=== PATIENT | female | born 1980 | race Caucasian/White ===

== ENCOUNTER → 2020-02-25 15:39 | Outpatient (BNVA) | payer OTHER, SELFPAY | PROVIDERS: PCP Internal Medicine; Visit Provider Urology | DX: Z76.89 Persons encountering health services in other specified circumstances (principal) ==

== ENCOUNTER 2020-08-12 09:39 | Outpatient (REF) | payer OTHER, SELFPAY ==
[2020-08-12 10:14] LABS: COVID-19 Test Negative (Negative)
== END 2020-08-12 09:40 | disposition home or self-care (01) ==
LOC: HO.LAB 09:39
PROVIDERS: Visit Provider Internal Medicine
DX: Z20.822 Contact with and (suspected) exposure to COVID-19 (principal)
CPT/HCPCS: 36415; 87635; C9803

== ENCOUNTER 2020-08-30 09:36 | Outpatient (REF) | payer OTHER, SELFPAY ==
[2020-08-30 11:04] LABS: COVID-19 Test Negative (Negative); IDNOW Serial# 55D5AD1C
== END 2020-08-30 09:37 | disposition home or self-care (01) ==
LOC: HO.LAB 09:36
PROVIDERS: Visit Provider Internal Medicine
DX: Z20.822 Contact with and (suspected) exposure to COVID-19 (principal)
CPT/HCPCS: 36415; 87635; C9803

== ENCOUNTER 2021-01-26 15:49 | Outpatient (REF) | payer OTHER, SELFPAY | END 2021-01-26 15:50 | disposition home or self-care (01) | LOC: HO.LAB 15:49 | PROVIDERS: PCP Internal Medicine; Visit Provider Internal Medicine | DX: Z20.822 Contact with and (suspected) exposure to COVID-19 (principal) | CPT/HCPCS: U0003; U0005 ==

== ENCOUNTER 2021-02-02 16:03 | Emergency (ER) | payer OTHER, SELFPAY ==
[2021-02-02 17:39] VITALS: BP 125/68; PULSE 77; RESP 20; TEMP 37; O2SAT 98; BMI 27.4
[2021-02-02 20:43] VITALS: BP 130/76; PULSE 63; RESP 16; TEMP 36.5; O2SAT 100
--- NOTE | 2021-02-02 21:07 | ED.GENADULT ---
HPI - General Adult General Chief complaint: Skin/Abscess/Foreign Body Stated complaint: Bump on head Time Seen by Provider: 02/02/21 20:52 Source: patient Mode of arrival: ambulatory Limitations: no limitations History of Present Illness HPI narrative: Patient presents to the ED for lump forehead. Patient woke up with lump today ago. Patient denies waking up from the floor or hitting her head. Patient denies any pain in the area. Patient states no headache, nausea, vomiting, fever, chills, or dizziness. Patient denies any redness, pus discharge, or any recent head trauma. Related Data Home Medications Medication Instructions Recorded Confirmed cyclobenzaprine 5 mg tablet 5 mg PO TID PRN 02/25/20 drospirenone 3 mg-ethinyl 1 tab PO DAILY 02/25/20 estradiol 0.03 mg tablet (Ocella) Previous Rx's Medication Instructions Recorded pyridoxine (vitamin B6) 100 mg 100 mg PO DAILY 90 Days #90 tab 02/25/20 tablet Allergies Allergy/AdvReac Type Severity Reaction Status Date / Time No Known Allergies Allergy Verified 02/25/20 15:41 Review of Systems Review of Systems: Yes all other systems are reviewed and are negative Constitutional: Constitutional: Reports as per HPI and Reports no additional constitutional complaints Eyes: Eyes: Reports as per HPI and Reports no additional eye complaints ENT: Reports system reviewed and no additional complaints, except as documented and Reports as per HPI Cardiovascular: Cardiovascular: Reports as per HPI and Reports no additional cardiovascular complaints Respiratory: Respiratory: Reports as per HPI and Reports no additional respiratory complaints Gastrointestinal: Gastrointestinal: Reports as per HPI and Reports no additional gastrointestinal complaints Genitourinary: Genitourinary: Reports no additional female genitourinary complaints and Reports as per HPI Musculoskeletal: Musculoskeletal: Reports no additional musculoskeletal complaints and Reports as per HPI Integumentary/Breasts: Comments: Lump on forehead Neurologic: Reports system reviewed and no additional complaints, except as documented and Reports as per HPI Psychiatric: Psychiatric: Reports no additional psychiatric complaints and Reports as per HPI [facility] Social History Social History Advance Directives: No Patient : No Physical Exam Vital Signs: Vital Signs: Last Vital Signs Temp 97.7 F 02/02/21 20:43 Pulse 63 02/02/21 20:43 Resp 16 02/02/21 20:43 BP 130/76 02/02/21 20:43 Pulse Ox 100 02/02/21 20:43 Body Mass Index 27.4 Const: General: cooperative, healthy appearing, comfortable, no acute distress, well developed, alert, awake and Physically active Orientation/consciousness: patient oriented x3 HENMT: Head: Yes normal to inspection, Yes No palpable skull fracture present, Yes normocephalic and Yes atraumatic Head images: 1. Mass negative for any erythema, fluctuance, pus discharge, foul odor, open wounds, ecchymosis, crepitus, or deformity. Negative for sinus pressure. Eyes: General: appearance normal, both eyes and all related structures Neck: Neck: Yes normal visual inspection, Yes full ROM, Yes no lymphadenopathy, Yes no meningeal signs, Yes trachea midline, Yes supple and No tender Chest: Chest palpation & inspection: normal inspection of the chest and normal palpation of entire chest wall Resp: Effort & Inspection: normal respiratory effort and able to speak in complete sentences Auscultation: clear to auscultation bilaterally Cardio: Jugular venous distension: no JVD Heart sounds: S1 normal heart sound present and S2 normal heart sound present GI: Inspection: Yes normal to inspection and No abdominal wall ecchymosis Palpation (GI): Soft to palpation, not firm, nontender, no guarding and not rigid : General: No CVA tenderness and Yes no CVA tenderness Back/Spine/Pelvis: Back: no CVA tenderness, No CVA tenderness and No back tenderness Skin: General skin exam: no rashes or lesions noted and elasticity normal Neuro: General: patient oriented x3, gait normal, no meningeal signs and CN's II-XI intact bilaterally Cranial nerves: Yes CN's II-XII intact bilaterally Extrem: General: Yes normal to inspection and Yes full ROM Psych: Appearance: grossly normal, well kempt and not disheveled Course Course Course Narrative: No imaging indicated. Patient did not have any head trauma. History of physical exam does not indicate a skull fracture, brain bleed, abscess, cellulitis. Reevaluation(s) Reevaluation #1: Diagnosis is early lipoma. Patient informed to follow-up with surgery. Time: 21:15 Medical Decision Making [facility] Narrative Medical decision making narrative: Lipoma Discharge Plan Discharge Clinical Impression: Lipoma Patient Disposition: Home, Self-Care Instructions: Lipoma (ED), Soft Tissue Mass (ED) Additional Instructions: Return to the ED immediately for pain, increase in size, redness, pus discharge, foul odor, fever, chills, severe headache, photophobia, neck pain, extremity tingling, or any other concerning symptoms. Prescriptions: No Action cyclobenzaprine 5 mg tablet 5 mg PO TID PRNRF: 0 drospirenone-ethinyl estradiol [Ocella] 3-0.03 mg tablet 1 tab PO DAILY RF: 0 pyridoxine (vitamin B6) 100 mg tablet 100 mg PO DAILY 90 Days Qty: 90 RF: 3 Referrals: Morgan Finney MD [Physician] - 2 days (Early lipoma) Interventions: ED Discharge Assessment Last Done: 02/02/21 21:24 Discharge Date/Time: 02/02/21 21:28 Print Language: Belarusian
== END 2021-02-02 21:28 | disposition home or self-care (01) ==
PROVIDERS: Emergency Provider Internal Medicine; PCP Internal Medicine
DX: D17.0 Benign lipomatous neoplasm of skin and subcutaneous tissue of head, face and neck (principal)
CPT/HCPCS: 99282; 99284

== ENCOUNTER 2021-02-22 13:34 | Outpatient (REF) | payer OTHER, SELFPAY ==
--- NOTE | ~2021-02-22 | XR_ITS ---
EXAMINATION: XR ABDOMEN KUB CLINICAL INDICATION: Right flank pain; question renal calculus. COMPARISON: CT abdomen and pelvis dated 05/12/2019; renal ultrasound dated 10/04/2009. TECHNIQUE: AP view of the abdomen. FINDINGS: The bowel gas pattern is normal, with no evidence of ileus or obstruction. At the upper pole and interpolar aspect of the right kidney, three 2 mm calculi are seen. At the lower pole of the right kidney, a 3 mm calculus is seen. No further urinary calculus is noted. The bones are unremarkable. XR/XR KUB IMPRESSION: Tiny right renal calculi are seen, as above. No further urinary calculus is presently appreciated on radiographs limited by overlapping bowel contents.
== END 2021-02-22 13:35 | disposition home or self-care (01) ==
LOC: HO.XRAY 13:34
PROVIDERS: PCP Internal Medicine; Visit Provider Urology
DX: N20.0 Calculus of kidney (principal)
CPT/HCPCS: 74018

== ENCOUNTER → 2021-03-01 15:30 | Outpatient (BNVA) | payer OTHER, SELFPAY | PROVIDERS: PCP Internal Medicine ==

== ENCOUNTER 2021-09-23 15:25 | Outpatient (REF) | payer OTHER, SELFPAY ==
--- NOTE | ~2021-09-23 | US_ITS ---
EXAMINATION: US RETROPERITONEAL LIMITED (RENAL ONLY) CLINICAL INFORMATION: Calculus of kidney. COMPARISON: X-ray KUB 02/22/2021. CT abdomen and pelvis 05/12/2019. TECHNIQUE: Real-time imaging of the kidneys. FINDINGS: RIGHT KIDNEY: 10.1 x 3.8 x 5.1 cm (SAG x AP x TRV). The kidney is normal in size, contour, and echogenicity. Renal cortical thickness is normal. No focal parenchymal lesions or hydronephrosis. At the interpolar aspect, 4 mm and 3 mm nonobstructing calculi are seen. LEFT KIDNEY: 10.8 x 4.4 x 4.8 cm (SAG x AP x TRV). The kidney is normal in size, contour, and echogenicity. Renal cortical thickness is normal. No focal parenchymal lesions or hydronephrosis. At the upper pole, a 2 mm nonobstructing calculus is seen. At the interpolar aspect, a 3 mm nonobstructing calculus is seen. At the lower pole, a 3 mm nonobstructing calculus is seen. US/US renal BI IMPRESSION: There are multiple nonobstructing bilateral renal calculi, as detailed. No hydronephrosis is seen bilaterally.
== END 2021-09-23 15:26 | disposition home or self-care (01) ==
LOC: HO.HMGCX 15:25
DX: N20.0 Calculus of kidney (principal)
CPT/HCPCS: 76775

== ENCOUNTER 2022-02-20 13:52 | Outpatient (REF) | payer OTHER, SELFPAY ==
--- NOTE | ~2022-02-20 | US_ITS ---
EXAMINATION: US RETROPERITONEAL LIMITED (RENAL ONLY) CLINICAL INFORMATION: Calculus of kidney. COMPARISON: Ultrasound retroperitoneal limited (renal only) 09/23/2021. X-ray abdomen KUB 02/22/2021. CT abdomen and pelvis without contrast 05/12/2019. TECHNIQUE: Real-time imaging of the kidneys. FINDINGS: RIGHT KIDNEY: 11.4 x 3.6 x 4.0 cm (SAG x AP x TRV). The kidney is normal in size, contour, and echogenicity. Renal cortical thickness is normal. 2 mm stone in the midpole. No focal parenchymal lesions or hydronephrosis. LEFT KIDNEY: 10.6 x 6.0 x 5.8 cm (SAG x AP x TRV). The kidney is normal in size, contour, and echogenicity. Renal cortical thickness is normal. 4 mm stone in the midpole. No focal parenchymal lesions or hydronephrosis. US/US renal BI IMPRESSION: Small bilateral renal stones. Stones appear decreased from August 2021 exam.
== END 2022-02-20 13:53 | disposition home or self-care (01) ==
LOC: HO.HMGCX 13:52
PROVIDERS: Visit Provider Urology
DX: N20.0 Calculus of kidney (principal)
CPT/HCPCS: 76775

== ENCOUNTER → 2022-04-21 11:22 | Outpatient (BNVA) | payer OTHER, SELFPAY | PROVIDERS: PCP Internal Medicine; Visit Provider Urology | DX: Z13.89 Encounter for screening for other disorder (principal) ==

== ENCOUNTER 2022-10-03 14:22 | Outpatient (REF) | payer OTHER, SELFPAY ==
--- NOTE | ~2022-10-03 | US_ITS ---
EXAMINATION: US RETROPERITONEAL LIMITED (RENAL ONLY) CLINICAL INFORMATION: Calculus of kidney. COMPARISON: Bilateral renal ultrasounds dated 02/20/2022. 09/23/2021. KUB dated 02/22/2021. TECHNIQUE: Real-time imaging of the kidneys. FINDINGS: RIGHT KIDNEY: 11.1 x 3.4 x 6.1 cm (SAG x AP x TRV). The kidney is normal in size, contour, and echogenicity. Renal cortical thickness is normal. No focal parenchymal lesions or hydronephrosis. At the interpolar aspect, a 3 mm nonobstructing calculus is seen. At the lower pole, a 2 mm nonobstructing calculus is LEFT KIDNEY: 11.1 x 4.7 x 5.0 cm (SAG x AP x TRV). The kidney is normal in size, contour, and echogenicity. Renal cortical thickness is normal. No focal parenchymal lesions or hydronephrosis. At the interpolar aspect, a 3 mm nonobstructing calculus is seen. US/US renal BI IMPRESSION: There are nonobstructing bilateral renal calculi. No hydronephrosis is seen bilaterally.
== END 2022-10-03 14:23 | disposition home or self-care (01) ==
LOC: HO.HMGCX 14:22
PROVIDERS: Visit Provider Urology
DX: N20.0 Calculus of kidney (principal)
CPT/HCPCS: 76775

== ENCOUNTER 2022-10-20 15:28 | Outpatient (AMB) | payer OTHER, SELFPAY ==
--- NOTE | 2022-10-20 15:29 | A.OFFVIS_ITS ---
Intake Intake Visit Reasons: 6m follow up/US(?) Intake Note: * Patient presents today for a 6mo follow-up with Ultrasound results * Meds- Pyridoxine (vitamin B6) * Allergies to Antibiotic- None * Blood Thinner- None Anesthetic Assistant Required: No Accompanied by: Self / Same As Patient Allergies No Known Allergies Allergy (Verified 10/20/22 15:30) HPI HPI Comments History of Present Illness Details Sola is a 42-year-old female who presents to the office for kidney stone follow-up. 10/20/22-- She is here follow-up post Renal US. The patient has had prior history of ureteroscopy in the past and has also stated that she has passed stone. Renal US results reviewed?10/03/22--findings of 2 small stones in the right kidney that are non-obstructing, 3 mm and a 2 mm as well as 3 mm in the left kidney. The patient has had a tele-visit last on 04/21/22. She has been instructed to take vitamin B6 100mg and adequate water intake. Kidney stones whose composition w 07/17 -- calcium oxalate - monohydrate, calcium oxalate - dihydrate. 06/19- 24 Hour urine evaluation Low Urine volume < 2.0 liters, High Sodium (> 100mEq), normal calcium, high citrate. The patient states having mild pain that is managable. She denies passing any stone in the interim. States taking vitamin B6 100 mg regularly. States consuming more fluids than before. Evaluation today: Blood:10 Carlos/uL, leukocytes: negative. Plan: Discussed to consume 60-64 ounces of water daily. Discussed to follow renal calculi prevention diet. Renal US prior was ordered. Follow-up after 1 year. Review of Systems Const All systems reviewed & are unremarkable except as noted in HPI and below Reports no additional complaints Eyes Reports no additional complaints ENT Reports no additional complaints Card Denies dyspnea Resp Denies cough and Denies dyspnea GI Reports no additional complaints Reports no additional complaints Musc Reports no additional complaints Skin/Breast Denies rash and Denies unusual bruising Neuro Reports no additional complaints Psych Reports no additional complaints Endo Reports no additional complaints Jamshid/Lymph Reports no additional complaints Aller/Immun Reports no additional complaints Results AMB Urinalysis, Automated UA Leukoctes 0 Talisha/uL Last Edit by Dagoberto Feng [facility] on 10/20/22 15:48 UA Nitrite Negative Last Edit by Dagoberto Feng [facility] on 10/20/22 15:48 UA Urobilinogen 0.2 mg/dL Last Edit by Dagoberto Feng [facility] on 10/20/22 15:4 8 UA Protein 0 mg/dL Last Edit by Dagoberto Feng [facility] on 10/20/22 15:48 UA pH 7.5 Last Edit by Dagoberto Feng [facility] on 10/20/22 15:48 UA Blood 10 Carlos/uL Last Edit by Dagoberto Feng [facility] on 10/20/22 15:48 UA Specific Mehama 1.010 Last Edit by Dagoberto Feng [facility] on 10/20/22 15: 48 UA Ketone Negative Last Edit by Dagoberto Feng [facility] on 10/20/22 15:48 UA Bilirubin 0 mg/dL Last Edit by Dagoberto Feng [facility] on 10/20/22 15:48 UA Glucose 0 mg/dL Last Edit by Dagoberto Feng [facility] on 10/20/22 15:48 Results Reviewed Results Reviewed: Laboratory Last Values Urine pH (Auto) 7.5 10/20/22 15:42 Specific Mehama (Auto) 1.010 10/20/22 15:42 Urine Protein (Auto) 0 mg/dL 10/20/22 15:42 Glucose (UA)(Auto) 0 mg/dL 10/20/22 15:42 Urine Ketones (Auto) Negative 10/20/22 15:42 Urine Blood (Auto) 10 Carlos/uL 10/20/22 15:42 Urine Nitrite (Auto) Negative 10/20/22 15:42 Urine Bilirubin (Auto) 0 mg/dL 10/20/22 15:42 Urine Urobilinogen (Auto) 0.2 mg/dL 10/20/22 15:42 Leukocyte Esterase (Auto) 0 Talisha/uL 10/20/22 15:42 Date of Service: 10/03/22 EXAMINATION: US RETROPERITONEAL LIMITED (RENAL ONLY) CLINICAL INFORMATION: Calculus of kidney. COMPARISON: Bilateral renal ultrasounds dated 02/20/2022. 09/23/2021. KUB dated 02/22/2021. TECHNIQUE: Real-time imaging of the kidneys.? FINDINGS: RIGHT KIDNEY: 11.1 x 3.4 x 6.1 cm (SAG x AP x TRV). The kidney is normal in size, contour, and echogenicity. Renal cortical thickness is normal. No focal parenchymal lesions or hydronephrosis. At the interpolar aspect, a 3 mm nonobstructing calculus is seen. At the lower pole, a 2 mm nonobstructing calculus is LEFT KIDNEY: 11.1 x 4.7 x 5.0 cm (SAG x AP x TRV). The kidney is normal in size, contour, and echogenicity. Renal cortical thickness is normal. No focal parenchymal lesions or hydronephrosis. At the interpolar aspect, a 3 mm nonobstructing calculus is seen. IMPRESSION: There are nonobstructing bilateral renal calculi. No hydronephrosis is seen bilaterally. Assessment & Plan Assessment & Plan (1) Bilateral nephrolithiasis: Code(s): N20.0 - Calculus of kidney Plan Discussed to consume 60-64 ounces of water daily. Discussed to follow renal calculi prevention diet. Renal US prior was ordered. Follow-up after 1 year. Orders: Orders US renal BI 10 Months N20.0 - Calculus of kidney AMB Urinalysis Automated 10/20/22 Z13.9 - Encounter for screening, unspecified Medications: Refilled pyridoxine (vitamin B6) 100 mg PO DAILY 90 tabs 3RF Patient Instructions: The patient had an opportunity to ask questions regarding treatment plan. All questions were answered. Imaging, Laboratory studies and physical exam results were discussed and reviewed in detail. No major barriers to understanding were identified. The patient expressed understanding and agreement with the above treatment plan. The patient is aware they should contact our office by phone for worsening of their current condition or the appearance of new symptoms. Compliance is encouraged with any medications and followup testing that is ordered. It is a privilege to be allowed the opportunity to participate in the urologic care of your patient. If you have any questions or concerns regarding treatment for the above conditions please do not hesitate to contact me. The office telephone contact is [phone]. This note is constructed in part using voice recognition software. While every effort has been made to ensure accuracy oil burner errors may have been included. Yours sincerely, Shailesh Mejía MD Coding Level of Care Code Est Pt Level 3 (58326) Diagnoses Bilateral nephrolithiasis N20.0
== END 2022-10-20 15:54 | disposition home or self-care (01) ==
LOC: HO.HUSH 15:28
PROVIDERS: PCP Internal Medicine; Visit Provider Urology
DX: N20.0 Calculus of kidney (principal)
CPT/HCPCS: 99213

== ENCOUNTER → 2022-10-20 15:28 | Outpatient (BNVA) | payer OTHER, SELFPAY | PROVIDERS: PCP Internal Medicine; Visit Provider Urology | DX: N20.0 Calculus of kidney (principal) | CPT/HCPCS: 99212 ==

== ENCOUNTER 2023-08-01 15:23 | Outpatient (REF) | payer OTHER, SELFPAY ==
--- NOTE | ~2023-08-01 | US_ITS ---
EXAMINATION: US RETROPERITONEAL LIMITED (RENAL ONLY) CLINICAL INFORMATION: Calculus of kidney. COMPARISON: Renal ultrasound 10/03/2022, renal ultrasound 02/20/2022, x-ray KUB 02/22/2021, CT abdomen and pelvis 05/12/2019. TECHNIQUE: Real-time imaging of the kidneys. Limited visualization due to bowel gas. FINDINGS: RIGHT KIDNEY: 8.5 x 4.2 x 4.6 cm (SAG x AP x TRV). A 5 mm and 4 mm mid pole calculi. No hydronephrosis. Renal cortical thickness is normal. Limited visualization. LEFT KIDNEY: 10.4 x 4.3 x 5.0 cm (SAG x AP x TRV). A 3 mm lower pole and 5 mm mid pole calculi. Renal cortical thickness is normal. No hydronephrosis. Limited visualization. US/US renal BI IMPRESSION: Bilateral nonobstructive renal calculi. No hydronephrosis.
== END 2023-08-01 15:24 | disposition home or self-care (01) ==
LOC: HO.HMGCX 15:23
PROVIDERS: PCP Internal Medicine; Visit Provider Urology
DX: N20.0 Calculus of kidney (principal)
CPT/HCPCS: 76775

== ENCOUNTER 2023-09-03 06:36 | Emergency (ER) | payer OTHER, SELFPAY ==
[2023-09-03 06:40] VITALS: BP 122/68; PULSE 75; RESP 16; TEMP 36.2; O2SAT 98; BMI 30.6
--- NOTE | 2023-09-03 07:55 | ED_ITS ---
HPI - General Adult General Chief complaint: Allergic Reaction Stated complaint: allegic reaction Time Seen by Provider: 09/03/23 07:45 History of Present Illness HPI narrative: The patient is a 43-year-old woman who is generally healthy. Two days ago she felt that she had some swelling to the right side of her lip and she had a sense of numbness on the lip as well. She use Benadryl cream and it got better over the course of 24 hours. Yesterday she was not having any significant symptoms. This morning however she began to experience something similar on the left side of her lips and she also felt she was developing some puffiness under the left eye. She again applied Benadryl came and came to the emergency room for evaluation. By the time I am seeing her she is feeling that her symptoms are subsiding. There was no shortness of breath. No significant itchiness. No richelle h. She cannot think of any exposures that were unusual that might have caused any kind of an allergic reaction. Related Data Home Medications ?Medication ?Instructions ?Recorded ?Confirmed drospirenone 3 mg-ethinyl 1 tab PO DAILY 02/25/20 04/21/22 estradiol 0.03 mg tablet (Ocella) bupropion HCl 150 mg 24 hr tablet, 150 mg PO QAM 04/21/22 04/21/22 extended release Previous Rx's ?Medication ?Instructions ?Recorded pyridoxine (vitamin B6) 100 mg 100 mg PO DAILY #90 tabs 10/20/22 tablet Allergies Allergy/AdvReac Type Severity Reaction Status Date / Time No Known Allergies Allergy Verified 09/03/23 06:43 Review of Systems Review of Systems: Yes all other systems are reviewed and are negative [facility] Social History Social History Advance Directives: No Advance Directives Information Provided: No Do you have a plan to hurt others: No Plan Physical Exam ED Vital Signs: Vital Signs - 24 hr 09/03/23 06:40 Temperature 97.2 F Pulse Rate 75 Respiratory Rate 16 Blood Pressure 122/68 Pulse Oximetry 98 Oxygen Delivery Method Room Air BMI result Body Mass Index 30.6 Const Other: The patient is awake, alert, pleasant, cooperative. She does not appear in any distress HENCO Other: There is no facial swelling. There is no intraoral swelling. No intraoral pathology. Dentition are unremarkable. Mucous membranes moist. Eyes Other: Pupils are round equal, conjunctivae are clear, eyelids are not significantly swollen. Neck Other: No cervical adenopathy. Resp Effort & Inspection: normal respiratory effort Auscultation: clear to auscultation bilaterally Cardio Rate: regular rate Rhythm: regular rhythm Heart sounds: S1 normal heart sound present and S2 normal heart sound present Skin Other: Skin is dry and unremarkable. No rash. Neuro Other: The patient is awake, alert, pleasant, cooperative. She is entirely nontoxic. Grossly neurologically intact. Extrem Other: No peripheral edema. Medical Decision Making Medical Decision Making MDM Narrative: The patient is a very pleasant 43-year-old who is generally in good health. She describes having had some swelling to the right side of her face 2 days ago and this morning she started to experience something similar on the left side. She applied Benadryl came. Her swelling has resolved by the time I am seeing her. On my exam she has no significant findings at all. I assume this is some kind of a transient allergic reaction. No apparent allergen. She has not on GRACY inhibitors. She will be advised to use nonsedating antihistamines and to follow up with the regular doctor if symptoms persist. Discharge Plan Discharge Clinical Impression: Allergic reaction Patient Disposition: Home, Self-Care Instructions: General Allergic Reaction (ED) Additional Instructions: At the moment it is not clear what is causing the symptoms you have experienced over the last few days. This is most likely some kind of an allergic reaction. At the moment it does not seem very severe. You may use not sedating antihistamines such as loratadine or cetirizine. These may be purchased [id number]. Store brands are usually the least expensive. If this continues to be a problem you will likely need to follow up with your regular doctor's office to get a referral to an electric power line repairer. If at any point your symptoms are significantly worse, especially if you have trouble breathing, return to the emergency room for additional evaluation. Prescriptions: No Action drospirenone-ethinyl estradiol [Ocella] 3-0.03 mg tablet 1 tab PO DAILY bupropion HCl 150 mg tablet extended release 24 hr 150 mg PO QAM pyridoxine (vitamin B6) 100 mg tablet 100 mg PO DAILY Qty: 90 3RF Referrals: [facility]. Hanny Dunaway [Provider Group] (allergic reaction) Print Language: Tajik
[2023-09-03] MEDS: Loratadine 10 MG TABLET PO (08:31)
[2023-09-03 08:32] VITALS: BP 115/63; PULSE 65; RESP 16; TEMP 36.3; O2SAT 99
[2023-09-03 08:46] VITALS: BP 115/63; PULSE 65; RESP 16; TEMP 36.3; O2SAT 99
== END 2023-09-03 08:47 | disposition home or self-care (01) ==
PROVIDERS: Emergency Provider Emergency Medicine
DX: T78.40XA Allergy, unspecified, initial encounter (principal); X58.XXXA Exposure to other specified factors, initial encounter; R22.9 Localized swelling, mass and lump, unspecified; R20.0 Anesthesia of skin
CPT/HCPCS: 99283; 99284

== ENCOUNTER 2023-10-22 13:52 | Outpatient (AMB) | payer OTHER, SELFPAY ==
--- NOTE | 2023-10-22 14:21 | A.OFFVIS_ITS ---
Intake Visit Reasons: 1y/US Intake Note: Patient is Present for Telephone Follow Up For US Urology Med:VB6 Antibiotic Allergy:NONE Blood Thinner:NONE Allergies No Known Allergies Allergy (Verified 10/22/23 14:24) HPI Comments Details: 10/22/23--Sola is a 43-year-old female who presents telehealth visit for kidney stone follow-up. She is using dlke-vqe-cenzqoq vitamin B6 100 mg. She has been adding lemon to her fluids. I have reviewed renal ultrasound performed on 08/01/2023, right kidney to stones 5 mm and 4 mm, left kidney 1 stone 5 mm. For for accurate measurement consider CT KUB in 12 months. The patient states she has been asymptomatic. I have discussed follow-up 24 hour urine collection. Review of chart: 10/20/22--She is here follow-up post Renal US. The patient has had prior history of ureteroscopy in the past and has also stated that she has passed stone. Renal US results reviewed?10/03/22--findings of 2 small stones in the right kidney that are non-obstructing, 3 mm and a 2 mm as well as 3 mm in the left kidney. The patient has had a tele-visit last on 04/21/22. She has been instructed to take vitamin B6 100mg and adequate water intake. Kidney stones whose composition w 07/17 -- calcium oxalate - monohydrate, calcium oxalate - dihydrate. 06/19- 24 Hour urine evaluation Low Urine volume < 2.0 liters, High Sodium (> 100mEq), normal calcium, high citrate. The patient states having mild pain that is managable. She denies passing any stone in the interim. States taking vitamin B6 100 mg regularly. States consuming more fluids than before. Evaluation today: Blood:10 Carlos/uL, leukocytes: negative. [facility] Social History Alcohol intake: current Alcohol intake frequency: holidays/special occasions only Review of Systems Const All systems reviewed & are unremarkable except as noted in HPI and below Reports no additional complaints Eyes Reports no additional complaints ENT Reports no additional complaints Card Reports no additional complaints Resp Reports no additional complaints GI Reports no additional complaints Reports as per HPI Musc Reports no additional complaints Skin/Breast Reports system reviewed and no additional complaints, except as documented Neuro Reports no additional complaints Psych Reports no additional complaints Endo Reports no additional complaints Jamshid/Lymph Reports no additional complaints Aller/Immun Reports no additional complaints Telehealth Telehealth Telehealth Platform: [employer] Location of provider rendering services: practice address Location of patient: address on file Patient Identification confirmed using: Name, : Yes Telehealth method: video Patient verbally consented to treatment: Yes Patient verbally consented to billing insurance company: Yes Patient informed of any privacy concerns related to visit: Yes Results Reviewed Results Reviewed: Date of Service: 08/01/23 US RETROPERITONEAL LIMITED (RENAL ONLY) CLINICAL INFORMATION: Calculus of kidney. COMPARISON: Renal ultrasound 10/03/2022, renal ultrasound 02/20/2022, x-ray KUB 02/22/2021, CT abdomen and pelvis 05/12/2019. TECHNIQUE: Real-time imaging of the kidneys. Limited visualization due to bowel gas. FINDINGS: RIGHT KIDNEY: 8.5 x 4.2 x 4.6 cm (SAG x AP x TRV). A 5 mm and 4 mm mid pole calculi. No hydronephrosis. Renal cortical thickness is normal. Limited visualization. LEFT KIDNEY: 10.4 x 4.3 x 5.0 cm (SAG x AP x TRV). A 3 mm lower pole and 5 mm mid pole calculi. Renal cortical thickness is normal. No hydronephrosis. Limited visualization. IMPRESSION: Bilateral nonobstructive renal calculi. No hydronephrosis. Date of Service: 10/03/22 EXAMINATION: US RETROPERITONEAL LIMITED (RENAL ONLY) CLINICAL INFORMATION: Calculus of kidney. COMPARISON: Bilateral renal ultrasounds dated 02/20/2022. 09/23/2021. KUB dated 02/22/2021. TECHNIQUE: Real-time imaging of the kidneys.? FINDINGS: RIGHT KIDNEY: 11.1 x 3.4 x 6.1 cm (SAG x AP x TRV). The kidney is normal in size, contour, and echogenicity. Renal cortical thickness is normal. No focal parenchymal lesions or hydronephrosis. At the interpolar aspect, a 3 mm nonobstructing calculus is seen. At the lower pole, a 2 mm nonobstructing calculus is LEFT KIDNEY: 11.1 x 4.7 x 5.0 cm (SAG x AP x TRV). The kidney is normal in size, contour, and echogenicity. Renal cortical thickness is normal. No focal parenchymal lesions or hydronephrosis. At the interpolar aspect, a 3 mm nonobstructing calculus is seen. IMPRESSION: There are nonobstructing bilateral renal calculi. No hydronephrosis is seen bilaterally. Assessment & Plan Assessment & Plan (1) Bilateral nephrolithiasis: Code(s): N20.0 - Calculus of kidney Category: Medical Plan Discussed to consume 60-64 ounces of water daily. Discussed to follow renal calculi prevention diet. 24 hour urine Follow-up to review results Patient Instructions: The patient had an opportunity to ask questions regarding treatment plan. The patient expressed understanding and agreement with the above treatment plan. The patient is aware they should contact our office by phone for worsening of their current condition or the appearance of new symptoms. Compliance is encouraged with any medications and followup testing that is ordered. It is a privilege to be allowed the opportunity to participate in the urologic care of your patient. If you have any questions or concerns regarding treatment for the above conditions please do not hesitate to contact me. The office tel ephone contact is [phone]. This note is constructed in part using voice recognition software. While every effort has been made to ensure accuracy tobacco cutter errors may have been included. Yours sincerely, Shailesh Mejía MD Coding Level of Care Code Tele Est Pt Level 4 (81878) Diagnoses Bilateral nephrolithiasis N20.0
== END 2023-10-22 15:01 | disposition home or self-care (01) ==
LOC: HO.HUSH 13:52
PROVIDERS: Visit Provider Urology
DX: N20.0 Calculus of kidney (principal)
CPT/HCPCS: 99214

== ENCOUNTER → 2023-10-22 13:52 | Outpatient (BNVA) | payer OTHER, SELFPAY | PROVIDERS: Visit Provider Urology ==

== ENCOUNTER 2024-02-08 09:11 | Outpatient (AMB) | payer OTHER, SELFPAY ==
--- NOTE | 2024-02-08 09:07 | MHC.OFFVIS ---
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 Discussed 24 hour urine results: Total volume 1.32 mL, Calcium 263 mg; Oxalate 50 mg, Sodium 170, Citrate 841 mg. Instructed on importance of fluid intake, Low oxalate diet, low sodium diet. Nephrology referral. CT stone protocol in one year. Review of chart: 10/22/23--Sola is a 43-year-old female who presents telehealth visit for kidney stone follow-up. She is using eiaq-jmy-krztenz vitamin B6 100 mg. She has been adding lemon to her fluids. I have reviewed renal ultrasound performed on 08/01/2023, right kidney to stones 5 mm and 4 mm, left kidney 1 stone 5 mm. For for accurate measurement consider CT KUB in 12 months. The patient states she has been asymptomatic. I have discussed follow-up 24 hour urine collection. 10/20/22--She is here follow-up post Renal US. The patient has had prior history of ureteroscopy in the past and has also stated that she has passed stone. Renal US results reviewed?10/03/22--findings of 2 small stones in the right kidney that are non-obstructing, 3 mm and a 2 mm as well as 3 mm in the left kidney. The patient has had a tele-visit last on 04/21/22. She has been instructed to take vitamin B6 100mg and adequate water intake. Kidney stones whose composition w 07/17 -- calcium oxalate - monohydrate, calcium oxalate - dihydrate. 06/19- 24 Hour urine evaluation Low Urine volume < 2.0 liters, High Sodium (> 100mEq), normal calcium, high citrate. The patient states having mild pain that is managable. She denies passing any stone in the interim. States taking vitamin B6 100 mg regularly. States consuming more fluids than before. Evaluation today: Blood:10 Carlos/uL, leukocytes: negative. PFSH Social History Alcohol intake: current Alcohol intake frequency: holidays/special occasions only Review of Systems Const All systems reviewed & are unremarkable except as noted in HPI and below Reports no additional complaints Eyes Reports no additional complaints ENT Reports no additional complaints Card Reports no additional complaints Resp Reports no additional complaints GI Reports no additional complaints Reports as per HPI Musc Reports no additional complaints Skin/Breast Reports system reviewed and no additional complaints, except as documented Neuro Reports no additional complaints Psych Reports no additional complaints Endo Reports no additional complaints Jamshid/Lymph Reports no additional complaints Aller/Immun Reports no additional complaints Telehealth Telehealth Telehealth Platform: [email or web address] Location of provider rendering services: practice address Location of patient: address on file Telehealth method: video Patient verbally consented to treatment: Yes Patient verbally consented to billing insurance company: Yes Patient informed of any privacy concerns related to visit: Yes Assessment & Plan Assessment & Plan (1) Bilateral nephrolithiasis: Code(s): N20.0 - Calculus of kidney Category: Medical (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 CT stone protocol in one year. Orders: Orders CT abdomen pelvis wo IV con 11 Months N20.0 - Calculus of kidney Referrals Nephrology Referral N20.0 - Calculus of kidney, R82.992 - Hyperoxaluria, R82.994 - Hypercalciuria Patient Instructions: The patient had an opportunity to ask questions regarding treatment plan. The patient expressed understanding and agreement with the above treatment plan. The patient is aware they should contact our office by phone for worsening of their current condition or the appearance of new symptoms. Compliance is encouraged with any medications and followup testing that is ordered. It is a privilege to be allowed the opportunity to participate in the urologic care of your patient. If you have any questions or concerns regarding treatment for the above conditions please do not hesitate to contact me. The office telephone contact is [phone]. This note is constructed in part using voice recognition software. While every effort has been made to ensure accuracy political research scientist errors may have been included. Yours sincerely, Shailesh Mejía MD Coding Level of Care Code Tele Est Pt Level 4 (88262) Diagnoses Bilateral nephrolithiasis N20.0 Hypercalciuria R82.994 Hyperoxaluria R82.992
== END 2024-02-08 10:53 | disposition home or self-care (01) ==
LOC: HO.HUSH 09:11
PROVIDERS: Visit Provider Urology
DX: N20.0 Calculus of kidney (principal); R82.994 Hypercalciuria; R82.992 Hyperoxaluria
CPT/HCPCS: 99214

== ENCOUNTER → 2024-02-08 09:11 | Outpatient (BNVA) | payer OTHER, SELFPAY | PROVIDERS: Visit Provider Urology ==

== ENCOUNTER 2024-02-19 14:10 | Outpatient (AMB) | payer OTHER, SELFPAY ==
--- NOTE | 2024-02-19 12:44 | HO.NEPHOV_ITS ---
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 Has been following [facility], Dr Mejía, who consulted nephrology for recurrent renal stones. Nephrolithiasis, recurrent, since prior to 2019. Hx of ureteroscopy. June 2019 stone analysis showed calcium oxalate stones. Most recent 24 hour urine: elevated urine calcium (263), elevated urine oxalate (50), elevated urine pH (6.968), and elevated urine sodium (170). Renal US on 08/01/23 showed bilateral non-obstructing renal calculi: right 4mm and 5mm mid pole calculi, and left 3mm lower pole and 5mm mid pole calcli. No hydronephrosis or renal cortical thickness. surgery in 2019 for stone removal. Patient is taking 100mg B6 PO daily. She is adding lemon juice to her fluids. restricting salt: not a big salt person but states she eats a lot of frozen/processsed foods. 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 She will work on this adequate fluids: Has had a hard time with this all her life. Urine output on 24 hr urine inadequate (only 1.3L) limit protein from red meat: yes family hx of renal disease: grandfather, cousin's son as well. No other history personal hx: None, no hx weight loss surgery medications: B6 100mg daily, symptoms: no current flank/back or urinary pain, but has this when a stone is passing. Usually pass on their own per pt. [facility] Social History Alcohol intake: current Alcohol intake frequency: holidays/special occasions only Review of Systems Const Denies anorexia and Denies fever(s) Card Denies no additional complaints and Denies dyspnea Resp Reports no additional complaints and Denies dyspnea GI Denies abdominal pain Denies hematuria, Denies difficulty voiding, Denies dysuria, Denies pelvic pain and Denies flank pain Musc Denies back pain, Denies arthralgias and Denies tingling Skin/Breast Denies rash Neuro Denies focal weakness, Denies tingling and Denies tremor(s) Physical Exam Const General: comfortable and no acute distress Neck Neck: Yes no JVD Resp Effort & Inspection: able to speak in complete sentences Auscultation: clear to auscultation bilaterally Cardio Jugular venous distension: no JVD Rate: regular rate Rhythm: regular rhythm Heart sounds: S1 normal heart sound present and S2 normal heart sound present GI Palpation (GI): Soft to palpation Rectal Exam - Female: No tenderness General: Yes no CVA tenderness Back/Spine/Pelvis Back: no CVA tenderness Skin Rashes: no rashes Extrem General: Yes normal to inspection, No edema and No pedal edema Results Reviewed Nephrology Results: Renal US 08/01/23 Assessment & Plan Assessment & Plan (1) Bilateral nephrolithiasis: Code(s): N20.0 - Calculus of kidney Category: Medical (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 Category: Medical (3) Hyperoxaluria: Code(s): R82.992 - Hyperoxaluria Category: Medical Plan Recurrent bilateral nephrolithiasis secondary to hyperoxaluria and hypercalciuria discussed needs to cut down significantly on salt, urine sodium is elevated and frozen/processed foods tend to have excessive salt discussed importance of increasing fluid intake, advised needs to aim for 2.5-3L of fluid daily discussed avoiding high-oxalate foods, gave educational handout with list of foods to avoid and foods that are low in oxalates discussed keeping a journal of everything that she eats for at least 2 day period so she can evaluate what she is eating and where she can minimize salt and oxalates Will check serum lab work as below and repeat 24 hour urine in 4 weeks once she has implemented above dietary changes and fluid intake increase over the next 4 weeks if patient is hypercalciuric and PTH normal, will use hctz (low dose 12.5mg daily) to reduce urine calcium She will return in 5-6 weeks Orders: Orders Magnesium Today N20.0 - Calculus of kidney, R82.992 - Hyperoxaluria, R82.994 - Hypercalciuria Sodium, 24Hr Urine Group 4 Weeks N20.0 - Calculus of kidney, R82.992 - Hyperoxaluria, R82.994 - Hypercalciuria Creatinine, 24 Hr Group 4 Weeks N20.0 - Calculus of kidney, R82.992 - Hyperoxaluria, R82.994 - Hypercalciuria Calcium, 24 Hr Ur 4 Weeks N20.0 - Calculus of kidney, R82.992 - Hyperoxaluria, R82.994 - Hypercalciuria Oxalate, 24 Hr 4 Weeks N20.0 - Calculus of kidney, R82.992 - Hyperoxaluria, R82.994 - Hypercalciuria Uric Acid, 24Hr Urine Group 4 Weeks N20.0 - Calculus of kidney, R82.992 - Hyperoxaluria, R82.994 - Hypercalciuria Citric Acid 24hr Urine 4 Weeks N20.0 - Calculus of kidney, R82.992 - Hyperoxaluria, R82.994 - Hypercalciuria Basic Metabolic Panel Today N18.30 - Chronic kidney disease, stage 3 unspecified, N20.0 - Calculus of kidney, R82.992 - Hyperoxaluria, R82.994 - Hypercalciuria Phosphorus Today N20.0 - Calculus of kidney, R82.992 - Hyperoxaluria, R82.994 - Hypercalciuria PTH Intact Intraoperative Today N20.0 - Calculus of kidney, R82.992 - Hyperoxaluria, R82.994 - Hypercalciuria Uric Acid Today N20.0 - Calculus of kidney, R82.992 - Hyperoxaluria, R82.994 - Hypercalciuria Coding Level of Care Code New Pt Level 4 (39917) Diagnoses Bilateral nephrolithiasis N20.0 Hypercalciuria R82.994 Hyperoxaluria R82.992
[2024-02-19 14:18] VITALS: BP 118/74; PULSE 80; O2SAT 97; BMI 30.6
== END 2024-02-19 14:28 | disposition home or self-care (01) ==
PROVIDERS: PCP Internal Medicine; Referring Provider Urology; Visit Provider Internal Medicine Hypertension Specialist
DX: N20.0 Calculus of kidney (principal); R82.994 Hypercalciuria; R82.992 Hyperoxaluria
CPT/HCPCS: 99204

== ENCOUNTER → 2024-02-19 14:10 | Outpatient (BNVA) | payer OTHER, SELFPAY | PROVIDERS: PCP Internal Medicine; Referring Provider Urology; Visit Provider Internal Medicine Hypertension Specialist | DX: N18.30 Chronic kidney disease, stage 3 unspecified (principal); N20.0 Calculus of kidney; R82.994 Hypercalciuria; R82.992 Hyperoxaluria | CPT/HCPCS: 99202 ==

== ENCOUNTER 2024-03-14 07:58 | Outpatient (REF) | payer OTHER, SELFPAY ==
[2024-03-14 09:59] LABS: Creatinine, mg/dL 108.24
[2024-03-14 10:02] LABS: Creatinine, mg/dL 105.92
[2024-03-14 11:05] LABS: PTH Intact Intraoperative 36.2 pg/mL (8.7-77.1)
[2024-03-14 11:14] LABS: Anion Gap 9 (12-20); Blood Urea Nitrogen 12 mg/dL (9-16); Calcium 8.4 mg/dL (8.4-10.2); Carbon Dioxide 26 mmol/L (22-29); Chloride 104 mmol/L (96-108); Estimated Glomerular Filt Rate > 60; Glucose Random 95 mg/dL (60-115); Potassium 3.9 mmol/L (3.3-5.1); Sodium 135 mmol/L (135-145)
[2024-03-14 11:24] LABS: Creatinine, 24Hr Urine 1.4 G/Day (1.0-2.0); Sodium 24 Hr Urine 78.2 mmol/Day (40-220); Total Volume 24 Hour Urine 1325 mL
[2024-03-14 11:46] LABS: Uric Acid 4.5 mg/dL (2.4-5.7)
[2024-03-14 12:12] LABS: Uric Acid, 24 Hr Urine 475.7 mg/Day (250-750); Uric Acid, mg/dL 35.9 mg/dL
[2024-03-16 19:58] LABS: Calcium, 24 Hr Urine 232 mg/24 h; Calcium/Creatinine Ratio 172 mg/g creat (30-275); Creatinine 24Hr Urine 1.35 g/24 h (0.50-2.15)
[2024-03-19 12:08] LABS: 24hr Urine Total Volume 1325 mL; Citric Acid, 24hr Urine 780 mg/24 h (100-1300); Citric Acid/Creat Ratio 24U 571 mg/g creat (180-1070); Creatinine, 24U 1.37 g/24 h (0.50-2.15)
[2024-03-21 00:54] LABS: 24hr Urine Total Volume 1325 mL; Oxalic Acid 24 Urine 22.5 mg/24 h (3.6-38.0)
== END 2024-03-14 07:59 | disposition home or self-care (01) ==
LOC: HO.10HDL 07:58
PROVIDERS: Visit Provider Nurse Practitioner Family
DX: N18.30 Chronic kidney disease, stage 3 unspecified (principal); R82.992 Hyperoxaluria; R82.994 Hypercalciuria; N20.0 Calculus of kidney
CPT/HCPCS: 36415; 80048; 82340; 82507; 83735; 83945; 83970; 84100; 84300; 84550; 84560

== ENCOUNTER 2024-03-25 13:55 | Outpatient (AMB) | payer OTHER, SELFPAY ==
[2024-03-25 14:03] VITALS: BP 112/70; PULSE 69; O2SAT 99; BMI 29.9
--- NOTE | 2024-03-25 14:25 | HO.NEPHOV ---
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 Has been [place] [facility], Dr Mejía, who consulted nephrology for recurrent renal stones. Nephrolithiasis, recurrent, since prior to 2019. Hx of ureteroscopy. June 2019 stone analysis showed calcium oxalate stones. Most recent 24 hour urine: elevated urine calcium (263), elevated urine oxalate (50), elevated urine pH (6.968), and elevated urine sodium (170). Renal US on 08/01/23 showed bilateral non-obstructing renal calculi: right 4mm and 5mm mid pole calculi, and left 3mm lower pole and 5mm mid pole calcli. No hydronephrosis or renal cortical thickness. surgery in 2019 for stone removal. Patient is taking 100mg B6 PO daily. She is adding lemon juice to her fluids. restricting salt: not a big salt person but states she eats a lot of frozen/processsed foods. 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 She will work on this adequate fluids: Has had a hard time with this all her life. Urine output on 24 hr urine inadequate (only 1.3L) limit protein from red meat: yes family hx of renal disease: grandfather, cousin's son as well. No other history personal hx: None, no hx weight loss surgery medications: B6 100mg daily, symptoms: no current flank/back or urinary pain, but has this when a stone is passing. Usually pass on their own per pt. 03/25/24 pt returns today after repeat 24 hours urine. Made significant dietary changes and tried to increase her fluid intake states she tried to reduce her salt intake, and drank half lemonade half water (states because lemonade had a lot of sodium in it so she cut it with water). She has also been adding just lemon juice to water at times. worked on reducing her oxalate intake as discussed during last appointment (handout given) after changes were made, pt repeated 24 hour urine on 03/14/24: total urine volume 1325mL (about same as previous at 1320mL) urine calcium down from 263 to 232 urine oxalate down from 50 to 22.5 urine sodium down from 170 to 78.2 urine citric acid 780 (841 previously) she denies changes/new symptoms since she was last in the office. [facility] Social History Alcohol intake: current Alcohol intake frequency: holidays/special occasions only Review of Systems Const Denies anorexia and Denies fever(s) Card Denies no additional complaints and Denies dyspnea Resp Reports no additional complaints and Denies dyspnea GI Denies abdominal pain Denies hematuria, Denies difficulty voiding, Denies dysuria, Denies pelvic pain and Denies flank pain Musc Denies back pain, Denies arthralgias and Denies tingling Skin/Breast Denies rash Neuro Denies focal weakness, Denies tingling and Denies tremor(s) Physical Exam Const General: comfortable and no acute distress Neck Neck: Yes no JVD Resp Effort & Inspection: able to speak in complete sentences Auscultation: clear to auscultation bilaterally Cardio Jugular venous distension: no JVD Rate: regular rate Rhythm: regular rhythm Heart sounds: S1 normal heart sound present and S2 normal heart sound present GI Palpation (GI): Soft to palpation Rectal Exam - Female: No tenderness General: Yes no CVA tenderness Back/Spine/Pelvis Back: no CVA tenderness Skin Rashes: no rashes Extrem General: Yes normal to inspection, No edema and No pedal edema Results Reviewed Nephrology Results: Sodium 135 mmol/L (135-145) 03/14/24 Potassium 3.9 mmol/L (3.3-5.1) 03/14/24 Chloride 104 mmol/L (96-108) 03/14/24 Carbon Dioxide 26 mmol/L (22-29) 03/14/24 BUN 12 mg/dL (9-16) 03/14/24 Creatinine 0.93 mg/dL (0.5-1.4) 03/14/24 Calcium 8.4 mg/dL (8.4-10.2) 03/14/24 Phosphorus 3.0 mg/dL (2.7-4.5) 03/14/24 Renal US 08/01/23 Assessment & Plan Assessment & Plan (1) Bilateral nephrolithiasis: Code(s): N20.0 - Calculus of kidney Category: Medical (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 Discussed goal of 2-3L daily. Discussed that we will hold off on low-dose hctz for now given urine calcium levels have decreased with dietary changes. She will continue to work on low oxalate diet, low sodium diet and hydration. She will return to the office in 6 months, advised urine (spot urine calcium, sodium and creatinine) a few days prior to appt. Orders: Orders Creatinine Urine 6 Months N20.0 - Calculus of kidney, R82.992 - Hyperoxaluria, R82.994 - Hypercalciuria Calcium, Random Urine 6 Months N20.0 - Calculus of kidney, R82.992 - Hyperoxaluria, R82.994 - Hypercalciuria Sodium Urine Random 6 Months N20.0 - Calculus of kidney, R82.992 - Hyperoxaluria, R82.994 - Hypercalciuria Coding Level of Care Code Est Pt Level 3 (69609) Diagnoses Bilateral nephrolithiasis N20.0 Hypercalciuria R82.994 Hyperoxaluria R82.992 Time Spent (min) 20 Comment time spent assessing, counseling, documentation, chart review: 20 minutes.
== END 2024-03-25 14:13 | disposition home or self-care (01) ==
PROVIDERS: PCP Internal Medicine; Visit Provider Nurse Practitioner Family
DX: N20.0 Calculus of kidney (principal); R82.994 Hypercalciuria; R82.992 Hyperoxaluria
CPT/HCPCS: 99213

== ENCOUNTER → 2024-03-25 13:55 | Outpatient (BNVA) | payer OTHER, SELFPAY | PROVIDERS: PCP Internal Medicine; Visit Provider Nurse Practitioner Family | DX: N20.0 Calculus of kidney (principal); R82.994 Hypercalciuria; R82.992 Hyperoxaluria | CPT/HCPCS: 99212 ==

== ENCOUNTER 2024-09-04 14:24 | Outpatient (REF) | payer OTHER, SELFPAY ==
--- NOTE | ~2024-09-04 | US_ITS ---
EXAMINATION: US KIDNEY BILATERAL HISTORY: N20.0 - Calculus of kidney TECHNIQUE: Real-time grayscale ultrasound imaging of the kidneys was performed and images were reviewed. COMPARISON: Comparison is made with the prior examination dated 08/01/2023. FINDINGS: Right kidney: The right kidney measures 10.5 x 3.6 x 5.2 cm. Renal parenchymal echotexture and thickness are normal. There are no masses. There is a 4 x 3 x 5 mm nonobstructing calculus in the interpolar region and a 3 x 3 x 2 mm nonobstructing calculus at the lower pole. There is no hydronephrosis. Left Kidney: The left kidney measures 10.3 x 5.3 x 4.3 cm. Renal parenchymal echotexture and thickness are normal. There are no masses. There is a 3 x 3 x 2 mm nonobstructing calculus in the interpolar region and a 4 x 3 x 4 mm nonobstructing calculus at the lower pole. There is no hydronephrosis. US/US renal BI IMPRESSION: Bilateral nephrolithiasis as described. No hydronephrosis. Electronically signed by: Blily Stoner MD 09/04/2024 02:58 PM EDT
== END 2024-09-04 14:25 | disposition home or self-care (01) ==
LOC: HO.HMGCX 14:24
PROVIDERS: PCP Internal Medicine; Visit Provider Urology
DX: N20.0 Calculus of kidney (principal)
CPT/HCPCS: 76775

== ENCOUNTER → 2024-09-04 14:26 | Outpatient (BNV) | payer OTHER, SELFPAY | PROVIDERS: PCP Internal Medicine; Visit Provider Radiology Diagnostic Radiology | DX: N20.0 Calculus of kidney (principal) | CPT/HCPCS: 76775 ==

== ENCOUNTER 2024-09-29 13:43 | Outpatient (REF) | payer OTHER, SELFPAY ==
[2024-09-29 14:55] LABS: Creatinine Urine 232.17 mg/dL
== END 2024-09-29 13:44 | disposition home or self-care (01) ==
LOC: HO.LAB 13:43
PROVIDERS: Visit Provider Nurse Practitioner Family
DX: N20.0 Calculus of kidney (principal); R82.992 Hyperoxaluria; R82.994 Hypercalciuria
CPT/HCPCS: 82310; 82570; 84300

== ENCOUNTER 2024-10-06 14:01 | Outpatient (AMB) | payer OTHER, SELFPAY ==
--- NOTE | 2024-10-06 14:11 | HO.NEPHOV ---
Vital Signs 10/06/24 14:12 Height 5 ft 3 in Weight 131 lb 4 oz BMI 23.2 BP 102/70 Blood Pressure Location Rt brachial Position Sitting Pulse 88 Pulse Source Pulse Oximeter Pulse Oximetry (%) 99 Oxygen Delivery Method Room Air Intake Visit Reasons: Calculus of Kidney/ Conf [employer] Required: No Accompanied by: Self / Same As Patient Allergies No Known Allergies Allergy (Verified 10/06/24 14:12) Medication List - Last Reconciled 10/06/24 by Dennis Bravo MD bupropion HCl XL 150 mg PO QAM drospirenone-ethinyl estradiol 3-0.03 mg (Ocella) 1 tab PO DAILY iidwqfjmmgic-Vs-vkdv-minerals tabs PO DAILY naproxen 500 mg PO BID 7 days pyridoxine (vitamin B6) 100 mg PO DAILY tamsulosin 0.4 mg PO BEDTIME 7 days HPI Comments Details: Sola is a 43 y/o female with a medical history of nephrolithiasis. Has been following [facility], Dr Mejía, who consulted nephrology for recurrent renal stones. Nephrolithiasis, recurrent, since prior to 2019. Hx of ureteroscopy. June 2019 stone analysis showed calcium oxalate stones. Most recent 24 hour urine: elevated urine calcium (263), elevated urine oxalate (50), elevated urine pH (6.968), and elevated urine sodium (170). Renal US on 08/01/23 showed bilateral non-obstructing renal calculi: right 4mm and 5mm mid pole calculi, and left 3mm lower pole and 5mm mid pole calcli. No hydronephrosis or renal cortical thickness. surgery in 2019 for stone removal. Patient is taking 100mg B6 PO daily. She is adding lemon juice to her fluids. restricting salt: not a big salt person but states she eats a lot of frozen/processsed foods. 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 She will work on this adequate fluids: Has had a hard time with this all her life. Urine output on 24 hr urine inadequate (only 1.3L) limit protein from red meat: yes family hx of renal disease: grandfather, cousin's son as well. No other history personal hx: None, no hx weight loss surgery medications: B6 100mg daily, symptoms: no current flank/back or urinary pain, but has this when a stone is passing. Usually pass on their own per pt. 03/25/24 pt returns today after repeat 24 hours urine. Made significant dietary changes and tried to increase her fluid intake states she tried to reduce her salt intake, and drank half lemonade half water (states because lemonade had a lot of sodium in it so she cut it with water). She has also been adding just lemon juice to water at times. worked on reducing her oxalate intake as discussed during last appointment (handout given) after changes were made, pt repeated 24 hour urine on 03/14/24: total urine volume 1325mL (about same as previous at 1320mL) urine calcium down from 263 to 232 urine oxalate down from 50 to 22.5 urine sodium down from 170 to 78.2 urine citric acid 780 (841 previously) she denies changes/new symptoms since she was last in the office. 10/06/24 44-year-old female presenting with nephrolithiasis. Her condition of bilateral kidney stones was detected a month ago, and there was no significant obstruction noted at that time. She underwent a 24-hour urine collection last February, which revealed jsqtx-gwoj-rvfxlxj urine volume but otherwise satisfactory sodium, citrate, and oxalate levels. She admits to difficulties in maintaining adequate fluid intake, often consuming less than the recommended two liters of water daily. Previous dietary changes included reducing sodium intake from an initial high measure and avoiding high-oxalate foods to manage her stone condition better. During previous episodes, specifically marked by significant back pain and vomiting, she experienced what could be the passage of a larger stone. The patient's family history is contributory, as several relatives on one side have kidney stones. A history of increased oxalate and calcium levels was addressed with dietary counseling. [facility] Social History Alcohol intake: current Alcohol intake frequency: holidays/special occasions only Physical Exam Vital Signs: Last Vital Signs Pulse 88 10/06/24 14:12 BP 102/70 10/06/24 14:12 Pulse Ox 99 10/06/24 14:12 Oxygen Delivery Method Room Air 10/06/24 14:12 BMI result Body Mass Index 23.2 Const General: comfortable and no acute distress Neck Neck: Yes no JVD Resp Effort & Inspection: able to speak in complete sentences Auscultation: clear to auscultation bilaterally Cardio Jugular venous distension: no JVD Rate: regular rate Rhythm: regular rhythm Heart sounds: S1 normal heart sound present and S2 normal heart sound present GI Palpation (GI): Soft to palpation Rectal Exam - Female: No tenderness General: Yes no CVA tenderness Back/Spine/Pelvis Back: no CVA tenderness Skin Rashes: no rashes Extrem General: Yes normal to inspection, No edema and No pedal edema Results Reviewed Nephrology Results: Sodium 135 mmol/L (135-145) 03/14/24 Potassium 3.9 mmol/L (3.3-5.1) 03/14/24 Chloride 104 mmol/L (96-108) 03/14/24 Carbon Dioxide 26 mmol/L (22-29) 03/14/24 BUN 12 mg/dL (9-16) 03/14/24 Creatinine 0.93 mg/dL (0.5-1.4) 03/14/24 Calcium 8.4 mg/dL (8.4-10.2) 03/14/24 Phosphorus 3.0 mg/dL (2.7-4.5) 03/14/24 Urine Creatinine 232.17 mg/dL 09/29/24 Renal US 09/04/24 Assessment & Plan Assessment & Plan (1) Bilateral nephrolithiasis: Code(s): N20.0 - Calculus of kidney Category: Medical (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 Discussed goal of 2-3L daily. hold off on low-dose hctz for now given urine calcium levels have decreased with dietary changes. She will continue to work on low oxalate diet, low sodium diet and hydration. Orders: Orders Parathyroid Hormone Intact 1 Year N20.0 - Calculus of kidney Phosphorus 1 Year N20.0 - Calculus of kidney Creatinine, 24 Hr Group 1 Year N20.0 - Calculus of kidney Citric Acid 24hr Urine 1 Year N20.0 - Calculus of kidney Uric Acid, 24Hr Urine Group 1 Year N20.0 - Calculus of kidney Basic Metabolic Panel 1 Year N20.0 - Calculus of kidney Sodium, 24Hr Urine Group 1 Year N20.0 - Calculus of kidney Calcium, 24 Hr Ur 1 Year N20.0 - Calculus of kidney Oxalate, 24 Hr 1 Year N20.0 - Calculus of kidney Coding Level of Care Code Est Pt Level 3 (81310) Diagnoses Bilateral nephrolithiasis N20.0 Hypercalciuria R82.994 Hyperoxaluria R82.992
[2024-10-06 14:12] VITALS: BP 102/70; PULSE 88; O2SAT 99; BMI 23.2
--- OUTSIDE RECORDS SUMMARY | 2024-10-06 15:54 | XMS_ITS | Clinical Summary ---
Author Organization [facility] [address] [place] [address] [place] [id number] Phone Care Team Providers Care Driver Trainer Name Role Phone Shirin Pandey MD Primary Care Provider [phone] Allergies Active Allergy Reactions Criticality Noted Date Comments Poison Marcella Extract 01/24/2016 Medications pyridoxine (B-6) 100 mg tablet Take 1 tablet (100 mg total) by mouth. 0 Active fluticasone propionate (FLONASE) 50 mcg/actuation nasal spray Administer 1 spray into affected nostril(s). 3 Active multivitamin (MULTIPLE VITAMINS ORAL) Take by mouth 1 (one) time each day. Active drospirenone-e thinyl estradioL (OCELLA,VALENTINE, KAREN) 3-0.03 mg per tablet Take 1 tablet by mouth 1 (one) time each day. 84 tablet 3 5 Active cetirizine (ZyrTEC) 10 mg tablet TAKE 1 TABLET BY MOUTH EVERY DAY 90 tablet 1 5 Active buPROPion XL (WELLBUTRIN XL) 150 mg 24 hr tablet Take 1 tablet (150 mg total) by mouth 1 (one) time each day in the morning. 90 tablet 1 5 Active buPROPion XL (WELLBUTRIN XL) 150 mg 24 hr tablet Take 1 tablet (150 mg total) by mouth 1 (one) time each day in the morning. 90 tablet 1 5 09/26/19 25 Discontinu ed(Reorder ) Active Problems Problem Noted Date Diagnosed Date Heterogeneously dense tissue of right breast on mammography 06/03/2024 Dysuria 01/20/2023 Overview (03/06/2024): Last Assessment & Plan: UA negative. Wet prep collected to r/o vaginitis. Patient plans to follow-up with urologist. Tubular adenoma 10/10/2020 Overview (03/06/2024): 08/18 Cervical radiculitis 02/13/2018 Overview (03/06/2024): Followed by Dr. Leone Adjustment disorder with depressed mood 10/09/19 18 Seasonal allergic rhinitis 10/08/2017 Hirsutism 03/30/2016 PCOS (polycystic ovarian syndrome) 03/30/2016 Bilateral kidney stones 09/10/2014 Encounters Date Type Department Care Team Description 09/25/2024 8:30 AM EDT Office Visit Adult Medicine [address] [phone] Francia Phelps PA Routine physical examination (Primary Dx); Adjustment disorder with depressed mood; Bilateral kidney stones; Sensation of plugged ear on both sides 08/28/2024 9:14 AM EDT - 08/28/2024 11:59 PM EDT Hospital Encounter Radiology Department - [address] [phone] Abnormal mammogram Discharge Disposition: Home or Self Care from Last 3 Months Immunizations Name Administration Dates Next Due Influenza Quadravalent, MDCK , 0.5ml, preservative free (Flucelvax) 6mo and older 03/07/2023,03/07/2022,06/28/2021,2019 Influenza trivalent, MDCK, 0 .5mL, preservative free (Flucelvax) 6mo and older 05/08/2024 Moderna SARS-CoV-2 COVID-19, mRNA, LNP-S, preservative free 08/20/2020,07/23/2020 Tdap Tetanus diptheria acell ular pertussis (Boostrix; Adacel) 7yo and older 05/08/2016 Surgical History Surgery Date Site/Laterality Comments SECTION 2005 PROCEDURE: [place] DELIVERY ONLY; COMMENT: breech OTHER SURGICAL HISTORY 06/2019 PROCEDURE: HISTORICAL UNSPECIFIED SURGERY; COMMENT: kidney stone removal COLONOSCOPY 08/19/2020 PROCEDURE: HISTORICAL COLONOSCOPY; COMMENT: sigmoid polyp removed Medical History Medical History Date Comments Amenorrhea DX:Amenorrhea Other specified personal his tory presenting hazards to health(V15.89) DX:Other specifie d personal history presenting hazards to health(V15.89); COMMENT: HPV 2005 biopsy History of kidney stones 08/22/2014 DX:Hist ory of kidney stones Bilateral kidney stones 09/10/2014 DX:Bilat eral kidney stones PCOS (polycystic ovarian syndrome) 03/30/2016 DX:PCOS (polycystic ovarian syndrome) Hirsutism 03/30/2016 DX:Hirsutism Adjustment reaction with anx iety and depression 10/08/2017 DX:Adjustment reaction with anxiety and depression Seasonal allergic rhinitis 10/08/2017 DX:Se asonal allergic rhinitis Tubular adenoma 10/10/2020 DX:Tubular adeno ma; COMMENT: 08/18 Family History Medical History Relation Name Comments Brain cancer Father Colon polyps Mother Colon polyps Sister age 37 Other: pcos Sister Breast cancer Neg Hx Colon cancer Neg Hx Ovarian cancer Neg Hx Uterine cancer Neg Hx Relation Name Status Comments Father (Age 42) brain tumo r Maternal Grandfather Maternal Grandmother Mother Alive heart murmur; c olon polyps Paternal Grandfather Paternal Grandmother Sister Son Alive 2004; seizure d isorder Social History Tobacco Use Types Packs/Day Years Used Date Smoking Tobacco: Former Smokeless Tobacco: Never Tobacco Cessation:Counseling Given: Not Answered Alcohol Use Standard Drinks/Week Comments Yes 0 (1 standard drink = 0.6 oz pur e alcohol) occ Housing Instability Answer Date Recorde d Are you worried that in the next 2 months you may not have stable housing? No 09/18/2024 Food Access & Nutrition Answer Date Rec orded Do you have access to a vari ety of food including fruits and vegetables? Yes 09/18/2024 Access to Healthcare Answer Date Record ed Within the last 3 months, ho w many times did you visit the emergency department for your medical care? 0 09/18/2024 Health Literacy Answer Date Recorded How often do you need to hav e someone help you when you read instructions, pamphlets, or other written material from your doctor or pharmacy? Rarely 09/18/2024 Caregiver: How often do you need to have someone help you when you read instructions, pamphlets, or other written material from your doctor or pharmacy? Not on file 09/18/2024 Financial Risk Answer Date Recorded How hard is it for you to pa y for the very basics like food, housing, medical care, and air conditioning / heating? Not very hard 09/18/2024 Transportation Answer Date Recorded Has the lack of transportati on kept you from meetings, work, or from getting things needed for daily living? No Has the lack of transportati on kept you from medical appointments or from getting medications? No 09/18/2024 Social Isolation Answer Date Recorded How often do you feel lonely or isolated from ose around you? Never 09/18/2024 Food Risk Answer Date Recorded Within the past 12 months we worried whether our food would run out before we got money to buy more. Never true 09/18/2024 Within the past 12 months th e food we bought just didn't last and we didn't have money to get more. Never true 09/18/2024 Dependent Care Answer Date Recorded Do you need help finding or paying for care for your loved ones. For example, childcare center administrator or elderly care for an older adult? No 09/18/2024 Education Answer Date Recorded Do you think completing more education or training, like finishing a GED, going to college, or learning a trade, would be helpful for you? No 09/18/2024 Employment and Income Answer Date Recor ded During the last four weeks, have you been actively looking for work? No 09/18/2024 Living Situation Answer Date Recorded What is your living situation? 0 09/18/2024 Comments No Sex and Gender Information Value Date Recorded Sex Assigned at Female 03/07/2024 8:34 AM EST Legal Sex Female 5:00 AM EST Gender Identity Female 03/07/2024 8:34 AM EST Sexual Orientation Choose not to disclose 2023 8:34 AM EST Obstetrics History Para Term AB IAB SAB Ectopic Multiple Livin g Live Births 1 1 1 0 0 0 0 0 0 1 1 Date Outcome GA Total Labor Labor/2nd/3rd Weight Sex Type Anes PTL Amie A1 A5 Name Clin 005 Term 41w 0d 4139 g (146 oz) M CS-Un spec Living Delivery Location:[facility] Comments:breech Last Filed Vital Signs Vital Sign Reading Time Taken Comments Blood Pressure 96/68 09/25/2024 8:30 AM EDT Pulse 80 09/25/2024 8:30 AM EDT Temperature 36.5 ??C (97.7 ??F) 09/25/2024 8:30 AM ED T Respiratory Rate 12 09/25/2024 8:30 AM EDT Oxygen Saturation - - Inhaled Oxygen Concentration - - Weight 60.1 kg (132 lb 9.6 oz) 09/25/2024 8:30 A M EDT Height 161.3 cm (5' 3.5 ) 09/25/2024 8:30 AM EDT Body Mass Index 23.12 09/25/2024 8:30 AM EDT Plan of Treatment Upcoming Encounters Date Type Department Care Team (Late st Contact Info) Description 03/11/2025 4:00 PM EST Appointment Radiology Department [address] [phone] Health Maintenance Due Date Last Done Comments Hepatitis B Vaccines (1 of 3 - 19+ 3-dose series) 2000 HIV Screening 04/08/2022 Hepatitis C Screening 04/08/2022 Cervical Cancer Screening: Pap Smear 04/11/2024 04/11/2021 Colorectal Cancer Screening: Colonoscopy 08/19/2025 08/19/2020 Depression Screening 09/18/2025 09/18/2024 Social Influencers of Health Screening 09/18/2025 09/18/2024 DTaP,Tdap,and Td Vaccines (2 - Td or Tdap) 05/08/2026 05/08/2016 Breast Cancer Screening 08/28/2026 08/29/19 25, 03/07/2024, 09/10/2023, Additional history exists Cholesterol Screening (Lipid Panel) 09/25/2029 09/25/2024, 07/13/2023 COVID-19 Vaccine Discontinued 03/10/2021, , 07/23/2020 Influenza Vaccine Completed 05/08/2024, , 03/07/2022, Additional history exists HIB Vaccines Aged Out No longer eligi ble based on patient's age to complete this topic HPV Vaccines Aged Out No longer eligi ble based on patient's age to complete this topic Hepatitis A Vaccines Aged Out No long er eligible based on patient's age to complete this topic IPV Vaccines Aged Out No longer eligi ble based on patient's age to complete this topic MMR Vaccines Aged Out No longer eligi ble based on patient's age to complete this topic Meningococcal ACWY Vaccine Aged Out N o longer eligible based on patient's age to complete this topic Meningococcal B Vaccine Aged Out No l onger eligible based on patient's age to complete this topic Pneumococcal Vaccine: Pediatrics (0 to 5 Years) and At-Risk Patients (6 to 64 Years) Aged Out No longer eligible based on patient's age to complete this topic RSV Immunization Patients Under 20 months Aged Out No longer eligible based on patient's age to complete this topic Varicella Vaccines Aged Out No longer eligible based on patient's age to complete this topic Procedures Procedure Name Priority Date/Time Associated Diagnosis Comments CBC WITH AUTO DIFFERENTIAL Routine 09/25/2024 9:27 AM EDT Routine physical examination CBC AND DIFFERENTIAL Routine 09/25/2024 9:27 AM EDT Routine physical examination COMPREHENSIVE METABOLIC PANEL Routine 09/25/2024 9:27 AM EDT Routine physical examination HEMOGLOBIN A1C Routine 09/25/2024 9:27 AM EDT Routine physical examination LIPID PANEL WITH REFLEX TO DIRECT LDL Routine 09/25/2024 9:27 AM EDT Routine physical examination THYROID STIMULATING HORMONE WITH REFLEX TO FREE T4 AND FREE T3 Routine 09/25/2024 9:27 AM EDT Routine physical examination US RETROPERITONEAL COMPLETE Routine 09/04/2024 9:12 AM EDT US, RETROPERITNL ABD, LTD Routine 09/02/2024 4:45 PM EDT MG MAMMO DIAGNOSTIC ADDL VIEWS RIGHT Routine 08/28/2024 9:26 AM EDT Abnormal mammogram PAP SMEAR Routine 04/11/2021 from Last 3 Months or Most Recently Relevant to Health Maintenance Results * Thyroid stimulating hormone with reflex to free t4 and free t3 (09/25/2024 9:27 AM EDT) [facility] TSH 0.91 0.40 - 4.00 mcIU/mL LAB CHEMISTRY METHOD 09/25/2024 2:17 PM EDT [facility] Blood Venous blood specimen / Unknown Venipuncture / Unknown 09/25/2024 9:27 AM EDT 09/25/2024 9:27 AM EDT Francia DOWD LAB BLOOD ORDERABLES Final Res ult [facility] [address] [place] [address], [place] [phone] * Lipid panel with reflex to direct LDL (09/25/2024 9:27 AM EDT) [facility] Cholesterol 188 0 - 200 mg/dL LAB CHEMISTRY METHOD 09/25/2024 1:07 PM EDT [facility] Triglycerides 91 0 - 150 mg/dL LAB CHEMISTRY METHOD 09/25/2024 1:07 PM EDT [facility] HDL 83 >=40 mg/dL LAB CHEMISTRY METHOD 09/25/2024 1:07 PM EDT [facility] LDL Calculated 87 0 - 100 mg/dL LAB CHEMISTRY METHOD 09/25/2024 1:07 PM EDT [facility] VLDL Cholesterol Timur 18.2 mg/dL LAB CHEMISTRY METHOD 09/25/2024 1:07 PM EDT [facility] Non HDL Chol. (LDL+VLDL) 105 <145 mg/dL LAB CHEMISTRY METHOD 09/25/2024 1:07 PM EDT [facility] Chol/HDL Ratio 2.3 0.0 - 4.4 LAB CHEMISTRY METHOD 09/25/2024 1:07 PM EDT [facility] Blood Venous blood specimen / Unknown Venipuncture / Unknown 09/25/2024 9:27 AM EDT 09/25/2024 9:27 AM EDT Francia DOWD LAB BLOOD ORDERABLES Final Res ult [facility] [address] [place] [address], * (ABNORMAL) CBC auto differential (09/25/2024 9:27 AM EDT) WBC 5.7 4.8 - 10.8 K/mcL LAB HEMETOLOGY METHOD 09/25/2024 12:32 PM EDT [facility] RBC 4.30 3.80 - 4.80 M/mcL LAB HEMETOLOGY METHOD 09/25/2024 12:32 PM EDT [facility] Hemoglobin 13.8 11.5 - 16.0 g/dL LAB HEMETOLOGY METHOD 09/25/2024 12:32 PM EDT [facility] Hematocrit 40.3 35.0 - 47.0 % LAB HEMETOLOGY METHOD 09/25[facility]2024 [facility] MCV 93.3 79.0 - 98.0 FL LAB HEMETOLOGY METHOD 09/25/2024 12:32 PM EDT [facility] MCH 31.9 27.0 - 32.0 pcg LAB HEMETOLOGY METHOD 09/25/2024 12:[facility] MCHC 34.2 32.0 - 37.0 g/dL LAB HEMETOLOGY METHOD 09/25/2024 12:32 [facility] RDW 12.0 11.0 - 15.0 % LAB HEMETOLOGY METHOD 09/25/2024 12:32 PM EDT [facility] Platelets 235 130 - 400 K/mcL LAB HEMETOLOGY METHOD 09/25/2024 12:32 PM EDT [facility] MPV 11.5(H) 7.0 - 11.0 FL LAB HEMETOLOGY METHOD 09/25/2024 12:32 [facility] NRBC 0.0 <1.0 % LAB HEMETOLOGY METHOD 09/25/2024 12:32 PM EDT [facility] NRBC Absolute 0.00 <0.10 K/mcL LAB HEMETOLOGY METHOD 09/25/2024 12:32 PM [facility] Neutrophils Relative 47.0 % LAB HEMETOLOGY METHOD 09/25/2024 12:32 PM [facility] Lymphocytes Relative 41.8 % LAB HEMETOLOGY METHOD 09/25/2024 12:32 PM [facility] Monocytes Relative 6.9 % LAB HEMETOLOGY METHOD 09/25/2024 12:32 PM [facility] Eosinophils Relative 3.0 % LAB HEMETOLOGY METHOD 09/25/2024 12:32 PM [facility] Basophils Relative 1.1 % LAB HEMETOLOGY METHOD 09/25/2024 12:32 PM [facility] Immature Granulocytes Relative 0.2 % LAB HEMETOLOGY METHOD 09/25/2024 12:32 [facility] Neutrophils Absolute 2.67 1.50 - 7.00 K/mcL LAB HEMETOLOGY METHOD 09/25/2024 12:32 [facility] Lymphocytes Absolute 2.37 1.00 - 5.00 K/mcL LAB HEMETOLOGY METHOD 09/25/2024 12:32 PM [facility] Monocytes Absolute 0.39 0.20 - 1.00 K/mcL LAB HEMETOLOGY METHOD 09/25/2024 12:32 [facility] Eosinophils Absolute 0.17 0.00 - 0.50 K/[facility] LAB HEMETOLOGY METHOD 09/25/2024 12:32 PM EDT [facility] Basophils Absolute 0.06 0.00 - 0.20 K/[facility] LAB HEMETOLOGY METHOD 09/25/2024 12:32 PM EDT [facility] Immature Granulocytes Absolute 0.01 0.00 - 0.03 K/[facility] LAB HEMETOLOGY METHOD 09/25/2024 12:32 PM EDT [facility] Blood Venous blood specimen / Unknown Venipuncture / Unknown 09/25/2024 9:27 AM EDT 09/25/2024 9:27 AM EDT Francia DOWD LAB BLOOD ORDERABLES Final Res ult [facility] [address] [place] [address], [place] [phone] * Hemoglobin A1c (09/25/2024 9:27 AM EDT) [facility] Hemoglobin A1C 4.5 <6.5 % LAB CHEMISTRY METHOD 09/25/2024 2:25 PM EDT [facility] Mean Bld Glu Estim. 82 mg/dL LAB CHEMISTRY METHOD 09/25/2024 2:25 PM EDT [facility] Blood Venous blood specimen / Unknown Venipuncture / Unknown 09/25/2024 9:27 AM EDT 09/25/2024 9:27 AM EDT us Francia DOWD LAB BLOOD ORDERABLES Final Res ult [facility] [address] [place] [address], [place] [phone] * Comprehensive metabolic panel (09/25/2024 9:27 AM EDT) Sodium 140 133 - 145 mmol/L LAB CHEMISTRY METHOD 09/25/2024 1:03 PM [facility] Potassium 4.0 3.5 - 5.5 mmol/L LAB CHEMISTRY METHOD 09/25/2024 1:03 PM [facility] Chloride 110 96 - 110 mmol/L LAB CHEMISTRY METHOD 09/25/2024 1:03 PM [facility] CO2 26 21 - 32 mmol/L LAB CHEMISTRY METHOD 09/25/2024 1:03 PM [facility] Anion Gap 4 3 - 11 LAB CHEMISTRY METHOD 09/25/2024 1:03 PM [facility] Glucose 84 70 - 100 mg/dL LAB CHEMISTRY METHOD 09/25/2024 1:03 PM [facility] BUN 14 5 - 25 mg/dL LAB CHEMISTRY METHOD 09/25/2024 1:03 PM [facility] Creatinine 0.94 0.50 - 1.10 mg/dL LAB CHEMISTRY METHOD 09/25/2024 1:03 PM [facility] eGFR 77 >=60 mL/min/1. 73m2 LAB CHEMISTRY METHOD 09/25/2024 1:03 PM [facility] Comment:Calculation based on the Chronic Kidney Disease Epidemiology Collaboration (CKD-EPI) equation refit without adjustment for race. BUN/Creatinine Ratio 14.9 LAB CHEMISTRY METHOD 09/25/2024 1:03 PM [facility] Calcium 8.7 8.5 - 10.5 mg/dL LAB CHEMISTRY METHOD 09/25/2024 1:03 PM [facility] AST (SGOT) 23 10 - 42 unit/L LAB CHEMISTRY METHOD 09/25/2024 1:03 PM [facility] ALT (SGPT) 32 10 - 60 unit/L LAB CHEMISTRY METHOD 09/25/2024 1:03 PM [facility] Alkaline Phosphatase 45 42 - 121 unit/L LAB CHEMISTRY METHOD 09/25/2024 1:03 PM EDT [facility] Total Protein 6.8 6.0 - 8.0 g/dL LAB CHEMISTRY METHOD 09/25/2024 1:03 PM EDT [facility] Albumin 3.7 3.2 - 5.0 g/dL LAB CHEMISTRY METHOD 09/25/2024 1:03 PM EDT [facility] Total Bilirubin 0.4 0.0 - 1.4 mg/dL LAB CHEMISTRY METHOD 09/25/2024 1:03 PM EDT [facility] Blood Venous blood specimen / Unknown Venipuncture / Unknown 09/25/2024 9:27 AM EDT 09/25/2024 9:27 AM EDT Francia DOWD LAB BLOOD ORDERABLES Final Res ult [facility] [address] [place] [address], [place] [phone] * US Retroperitoneal Complete (09/04/2024 9:12 AM EDT) Anatomical Region Laterality Modality Body Ultrasound Historical Provider IMG US PROCEDURES Final R esult * Retroperitoneal Ultrasound, Abdomen Ltd (09/02/2024 4:45 PM EDT) Historical Provider IN CLINIC/BEDSIDE ORDERAB LES Final Result * MG Mammo Diagnostic Addl Views Right (08/28/2024 9:26 AM EDT) Anatomical Region Laterality Modality Breast Right Mammography 08/28/2024 9:31 AM EDT Impressions 08/28/2024 10:04 AM EDT Stable probably benign right breast calcifications. ??Magnification views of the right breast in February at the time of the patient's next bilateral mammogram are recommended and has been scheduled. ??Findings and recommendations were conveyed to the patient. ? BI-RADS CATEGORY: 3 - PROBABLY BENIGN RECOMMENDATION: Short Interval Follow-up is recommended for the Right Breast. Short Interval Follow-up is recommended for the right breast in 6 months. Short Interval Follow-up is recommended for the right breast in 6 months. Short Interval Follow-up is recommended for the Right Breast. Mammo Location: [facility], [address] [place] [address], [id number], . -------- FINAL REPORT -------- Dictated By: Jaky Cuba Dictated Date: 08/28/2024 09:31 ET Assigned Physician: Jaky Cuba Reviewed and Electronically Signed By: Jaky Cuba Signed Date: 08/28/2024 10:04 ET Workstation ID: [id number] Transcribed By: Self Edit Transcribed Date: 08/28/2024 09:36 ET Narrative 08/28/2024 10:04 AM EDT CLINICAL: 44 years old, Female, six-month follow-up right breast microcalcifications. COMPARISON: Magnification views right breast 03/07/2024, 09/10/2023, and 03/09/2023. ??Bilateral mammograms 03/07/2024 and 03/08/2023. FINDINGS: MAMMOGRAPHY TECHNIQUE: Magnification views of the right breast the CC and ML projections are obtained. Regional punctate microcalcifications in the upper outer right breast are unchanged. BREAST DENSITY: B - There are scattered areas of fibroglandular density. Francia DOWD IM BI PROCEDURES Final Result * Pap smear (04/11/2021) 04/11/2021 Narrative HISTORICAL TESTING LAB RESULTING AGENCY - 04/27/2021 1:31 PM EST [id number] THINPREP PAP, IMAGED: NEGATIVE FOR SQUAMOUS INTRAEPITHELIAL LESION AND MALIGNANCY . ABUNDANT RED BLOOD CELLS ARE PRESENT. NOTE: THE PAP TEST IS A SCREENING TEST WITH AN INHERENT FALSE NEGATIVE RATE. AUTOMATED PRESCREENING OF ALL LIQUID BASED SPECIMENS IS PERFORMED BY THE THINPREP IMAGING SYSTEM UNLESS OTHERWISE STATED. GORDON CARTY(ASCP) (CASE ELECTRONICALLY SIGNED 04 27 2021) RESULT OF APTIMA HIGH RISK HPV ASSAY: HIGH RISK HPV: ??NEGATIVE (SEROTYPES 16,18,31,33,35,39,45,51,52,56,58,59,66,68) COMPLETED ON 2021-04-14 ADEQUACY: SATISFACTORY ENDOCERVICAL/TRANSFORMATION ZONE COMPONENT PRESENT. SOURCE: THINPREP PAP HPV ANY DX: ??REFLEX 16 AND 18, CERVICAL, IMAGED CLINICAL INFORMATION: HPV ANY DIAGNOSIS. PAP HX NEG, Z12.4 us Katie Swanson [facility] CYTOLOGY ORDERABLES Final R esult HISTORICAL TESTING LAB RESULTING AGENCY from Last 3 Months or Most Recently Relevant to Health Maintenance Insurance [employer] Care Teams Driver Trainer Relationship Specialty Start Date End Date Shirin Pandey MD [address] [place] [phone] PCP - General Internal Medicine 12/27/21
== END 2024-10-06 14:27 | disposition home or self-care (01) ==
LOC: HO.HKA 14:01
PROVIDERS: PCP Internal Medicine; Visit Provider Internal Medicine Hypertension Specialist
DX: N20.0 Calculus of kidney (principal); R82.994 Hypercalciuria; R82.992 Hyperoxaluria
CPT/HCPCS: 99213

== ENCOUNTER → 2024-10-06 14:01 | Outpatient (BNVA) | payer OTHER, SELFPAY | PROVIDERS: PCP Internal Medicine; Visit Provider Internal Medicine Hypertension Specialist | DX: N20.0 Calculus of kidney (principal); R82.994 Hypercalciuria; R82.992 Hyperoxaluria | CPT/HCPCS: 99212 ==

== ENCOUNTER 2025-01-08 16:17 | Outpatient (REF) | payer OTHER, SELFPAY ==
--- NOTE | ~2025-01-08 | CT_ITS ---
EXAMINATION: CT ABDOMEN AND PELVIS WITHOUT CONTRAST CLINICAL INFORMATION: Calculus of the kidney COMPARISON: May 12, 2019 TECHNIQUE: Multidetector volumetric imaging was performed from the superior aspect of the liver through the pubic symphysis. Sagittal and coronal reformatted images were obtained on the technologist's workstation. This CT examination was performed using dose optimization techniques as appropriate, variously including the following: *Automated exposure control *Adjustment of mA and/or kV according to patient size (this includes techniques or standardized protocols for targeted exams where dose is matched to indication/reason for exam; i.e. extremities or head) *Use of iterative reconstruction technique DLP: 326 mGy*cm FINDINGS: LUNG BASES: The visualized lung bases are unremarkable. LIVER, GALLBLADDER, AND BILIARY TREE: The liver is normal in size, shape, and attenuation. No focal hepatic lesion or biliary ductal dilatation is present. The gallbladder is unremarkable with no evidence of radiopaque gallstones, gallbladder wall thickening, or obvious pericholecystic inflammatory changes. PANCREAS: Unremarkable. SPLEEN: Unremarkable. ADRENAL GLANDS: Unremarkable. KIDNEYS AND URETERS: There is a joint 3 mm the right kidney, without hydronephrosis. There are 5 punctate stones in the left kidney ranging between 1-3 mm. Overall, the number of subtle increased since the prior. BLADDER: Unremarkable. GASTROINTESTINAL TRACT: The small and large bowel are unremarkable. The retrocecal appendix is unremarkable. ABDOMINAL WALL: Small umbilical hernia containing slightly increased in size since the prior. LYMPH NODES: Normal. VASCULAR: Unremarkable. PELVIC VISCERA: Uterus and ovaries are unremarkable. There is a follicle in the right. OSSEOUS STRUCTURES: Unremarkable. CT/CT abdomen pelvis wo IV con IMPRESSION: Nephrolithiasis without hydronephrosis. There is a single punctate stone in the right kidney and 5 stones in the left kidney measuring between 1-3 mm. Overall, the stone burden has decreased since the prior in 2019. Fleischner guidelines were followed. Electronically signed by: Ryne Lomas MD 01/08/2025 05:30 PM EDT
--- OUTSIDE RECORDS SUMMARY | 2025-01-08 18:55 | XMS_ITS ---
Author Name [facility] Organization Unknown Care Team Organization Name Specialty Phone Email Start Date End Da te [facility] Shirin Pandey Primary Care 07/05/2022 024 [facility] Shannon Wallace Primary Care 03/07/20222023
== END 2025-01-08 16:18 | disposition home or self-care (01) ==
LOC: HO.CT 16:17
PROVIDERS: PCP Internal Medicine; Visit Provider Urology
DX: N20.0 Calculus of kidney (principal)
CPT/HCPCS: 74176

== ENCOUNTER → 2025-01-08 16:21 | Outpatient (BNV) | payer OTHER, SELFPAY | PROVIDERS: PCP Internal Medicine; Visit Provider Radiology Diagnostic Radiology | DX: N20.0 Calculus of kidney (principal) | CPT/HCPCS: 74176 ==